=== PATIENT | male | born 1950 | race Caucasian/White ===

== ENCOUNTER 2023-05-17 19:11 | Inpatient (IN) | payer MEDICARE, OTHER ==
[~2023-05-17] VITALS: Ht 172.7 cm; Wt 69.9 kg
--- NOTE | 2023-05-17 19:45 | NUR ---
Patient resting bed, informed of plan of care at this time. No s/s of any distress noted, #20g established in right ac, blood collected and sent to lab. ER provider exam was done.
[2023-05-17 20:02] LABS: CARBON DIOXIDE 29 mmol/L (21-32); CHLORIDE 100 mmol/L (98-107); CREATININE 1.4 mg/dL (0.6-1.3); HEMATOCRIT 30.6 % (36.7-47.1); MEAN CORPUSCULAR HEMOGLOBIN 36.3 uug (23.8-33.4); MEAN CORPUSCULAR VOLUME 109.4 fL (73.0-96.2); PLATELET COUNT (AUTO) 192 K/uL (152-348); POTASSIUM 4.2 mmol/L (3.5-5.1); UREA NITROGEN, BLOOD 17 mg/dL (7-18)
[2023-05-17 20:16] LABS: ALANINE AMINOTRANSFERASE 6 U/L (16-63); ALKALINE PHOSPHATASE 153 U/L (50-136); ASPARTATE AMINOTRANSFERASE 8 U/L (15-37); BILIRUBIN,DIRECT 0.2 mg/dL (0.0-0.2); BILIRUBIN,TOTAL 0.7 mg/dL (0.2-1.0); TOTAL PROTEIN, SERUM 6.7 g/dL (6.4-8.2)
[2023-05-17 20:17] LABS: ACETAMINOPHEN < 10.0 ug/mL (10-30)
[2023-05-17 20:32] LABS: MAGNESIUM 1.7 mg/dL (1.8-2.4)
--- NOTE | 2023-05-17 21:19 | NUR ---
Patient continues to rest, awaiting all results and MD re-eval.
--- NOTE | 2023-05-17 21:57 | NUR ---
Urine collected and sent to lab.
[2023-05-17] MEDS ORDERED: MAGNESIUM SULFATE/D5W 200 ML ONE (21:59)
[2023-05-17] MEDS: MAGNESIUM SULFATE/D5W 100 ML IV SCH ×3 (22:05→23:07)
[2023-05-17 22:06] LABS: *BLOOD, URINE NEGATIVE (NEGATIVE); *CLARITY,URINE CLEAR (CLEAR); *COLOR,URINE YELLOW (YELLOW); *KETONES,URINE TRACE (NEGATIVE); *UROBILINOGEN,URINE 0.2 E.U./dl (NORMAL); LEUKOCYTE ESTERASE ,URINE NEGATIVE (NEGATIVE); NITRITE, URINE NEGATIVE (NEGATIVE); UGLUCOSE NEGATIVE (NEGATIVE)
[2023-05-17 22:19] LABS: *BILIRUBIN,URIN 1+ (NEGATIVE)
[2023-05-17 22:30] LABS: *AMPHETAMINE, URINE NEGATIVE (NEGATIVE); *CANNABINOID, URINE POSITIVE (NEGATIVE); *COCCAINE, URINE NEGATIVE (NEGATIVE); *PHENCYCLIDINE SCREEN,URINE NEGATIVE (NEGATIVE)
[2023-05-17 23:04] LABS: BACTERIA,URINE FEW /HPF (NONE SEEN); RBC,URINE 0-3 /HPF (0-3); SQUAMOUS EPITHELIAL CELL,UR FEW /HPF (NONE SEEN); WBC,URINE NONE SEEN /HPF (0-3)
--- NOTE | 2023-05-17 23:05 | NUR ---
Crisis evaluation in process at this time.
--- NOTE | 2023-05-17 23:09 | NUR ---
2 grams of mag was given.
[2023-05-17] MEDS ORDERED: OXYCODONE/APAP 5-325 MG TABLET ONE (23:30)
[2023-05-17] MEDS ORDERED: OXYCODONE/APAP 5-325 MG TABLET PO ONE (23:30)
[2023-05-17] MEDS ORDERED: LORAZEPAM 0.5 MG TABLET PO ONE (23:30)
[2023-05-17] MEDS ORDERED: LORAZEPAM 0.5 MG TABLET ONE (23:30)
[2023-05-18] MEDS ORDERED: ALPR1TAB7 PO (00:02)
--- NOTE | 2023-05-18 00:02 | NUR ---
Pt states unable to remember names and dosages of medications, needs further follow up.
--- NOTE | 2023-05-18 00:13 | NUR ---
Patient informed that he will stay in hospital for now.
[2023-05-18] MEDS ORDERED: OLANZAPINE 5 MG TABLET PO ONE (00:15)
--- NOTE | 2023-05-18 00:16 | NUR ---
Patient up to bathroom with assist.
[2023-05-18] MEDS ORDERED: OLANZAPINE 5 MG TABLET ONE (00:20)
--- NOTE | 2023-05-18 00:55 | NUR ---
Patient is resting at this time, no change in primary assessment. Side rails up, will continue to monitor.
--- NOTE | 2023-05-18 02:01 | NUR ---
Patient remains awake, talking to himself. No change in primary assessment, will continue to monitor.
--- NOTE | 2023-05-18 03:47 | NUR ---
Patient remains awke, continues to talk to himself, no s/s of any distress. No voiced c/o pain or discomfort, side rails remain up, will continue to monitor.
--- NOTE | 2023-05-18 04:51 | NUR ---
Requested and given a urinal.
--- NOTE | 2023-05-18 06:32 | NUR ---
Patient has been awake all night talking to himself and trying to get out of bed, will continue with frequent monitoring. Side rails remain up at this time. Call placed to daughter Shi [phone], updated on plan of care. Roommate Bill #[phone].
--- NOTE | 2023-05-18 08:12 | NUR ---
PT IS IN BED , RESING COMFORTABLY. CONTINUE TO MONITOR THE PT.
[2023-05-18] MEDS ORDERED: OLANZAPINE 10 MG VIAL IM ONE ×2 (12:26→12:30)
[2023-05-18] MEDS ORDERED: MAGNESIUM HYDROXIDE 30 ML LIQUID UDC PO PRN (13:30)
[2023-05-18] MEDS ORDERED: MAG HYDROX/AL HYDROX/SIMETH 30 ML LIQUID UDC PO PRN (13:30)
--- NOTE | 2023-05-18 13:43 | NUR ---
REPORT WAS GIVEN TO RN M[facility]. PT WAS TRANSFERED TO [facility] ROOM #[id number].
[2023-05-18 14:40] VITALS: BP 157/73; TEMP 98.8; O2SAT 98
--- NOTE | 2023-05-18 14:51 | NUR ---
GPS Nursing Admission Note: Received 72 y/o male patient on a 5150 hold for GD. Patient was brought in on wheel chair via ER nurse. Per hold, patient was brought by ambulance due to hallucination and left arm pain . There, patient was placed on a 5150 hold starting 05/17/2023 @ 2349 hours.Upon face to face assessment, pt was confused, disoriented, malodorous, and lethargic. Per [facility] report, patient was given zyprexa IM for restlessness and agitation . During admission, pt was non-ambulatory and was full assist with care. Gave patient his Advisement, Patient's Handbook, and placed at his bedside table. Pt's belongings were accounted for; contraband (cellphone) secured in nurse station locker. Patient will be under the care of Dr. Bennett.
[2023-05-18 20:00] VITALS: BP 133/68; TEMP 97.4; O2SAT 97
[2023-05-18] MEDS: THIAMINE HCL 100 MG TABLET PO SCH (20:15)
[2023-05-18] MEDS: LORAZEPAM 1 MG TABLET PO PRN (20:48)
--- NOTE | 2023-05-18 21:00 | NUR ---
Received patient in the hallway sitting in a aron chair near the nursing station for safety. He is noted A/O x 1. he is hyperverbal,and restless. he stated, "just let me go. i need to go. i don't need to be here". He has poor insight and judgment as to the reason for his admission to [facility]. he is labile un unpredictable. Ativan 1mg PO PRN was given for anxiety. His V/S are stable. He is reassured for his safety. safety and fall precautions are in place. he was given PO fluids, but he refused snacks, will continue to monitor.
[2023-05-18] MEDS: ZOLPIDEM 5 MG TABLET PO PRN (21:54)
[2023-05-19 08:36] VITALS: BP 152/72; TEMP 98.5; O2SAT 99
[2023-05-19] MEDS: THIAMINE HCL 100 MG TABLET PO SCH (08:37)
[2023-05-19] MEDS: MULTIVIT, IRON, MIN NO. 8, FA TABLET PO SCH (08:37)
[2023-05-19 08:43] LABS: ALANINE AMINOTRANSFERASE 11 U/L (16-63); ALKALINE PHOSPHATASE 140 U/L (50-136); ASPARTATE AMINOTRANSFERASE 25 U/L (15-37); BILIRUBIN,TOTAL 0.6 mg/dL (0.2-1.0); CARBON DIOXIDE 28 mmol/L (21-32); CHLORIDE 105 mmol/L (98-107); CREATININE 1.4 mg/dL (0.6-1.3); POTASSIUM 3.9 mmol/L (3.5-5.1); TOTAL PROTEIN, SERUM 6.7 g/dL (6.4-8.2); UREA NITROGEN, BLOOD 22 mg/dL (7-18)
[2023-05-19] MEDS: DIVALPROEX SPRINKLE 125 MG CAP.SPRINK PO SCH ×2 (12:22→16:49)
[2023-05-19] MEDS: OLANZAPINE ZYDIS 5 MG TAB.RAPDIS PO SCH ×2 (12:23→16:49)
[2023-05-19] MEDS: ACETAMINOPHEN 325 MG TABLET PO PRN ×2 (12:23→20:12)
--- NOTE | 2023-05-19 14:35 | NUR ---
Received patient is confused and disoriented total care to all ADLS, assisted patient up to Kathleen-chair ,patient is restless and agitated prn Ativan given as ordered.c/o left arm pain managed well by Tylenol . un able to attend in group activity .patient with poor impulse control and poor insight ,will continue close monitoring.
[2023-05-19 16:28] VITALS: BP 149/59; TEMP 98; O2SAT 97
[2023-05-19 20:18] VITALS: BP 137/59; TEMP 98; O2SAT 98
--- NOTE | 2023-05-19 21:00 | NUR ---
Received patient in the hallway sitting in a aron chair near the nursing station for safety. He is noted A/O x 1 to 2. he is calm and cooperative. he is able to given basic information about himself and the reason for his admission to mhu. he stated added, "I felt at home an my arm hurts". he is able to comply with his medication regiment. Tylenol PO PRN was given for arm pain. His V/S are stable. He is reassured for his safety. safety and fall precautions are in place. he was given PO fluids, but he refused snacks, all his needs are met. will continue to monitor.
[2023-05-20] MEDS: ACETAMINOPHEN 325 MG TABLET PO PRN ×2 (07:51→23:35)
[2023-05-20] MEDS: LORAZEPAM 1 MG TABLET PO PRN ×2 (07:51→23:35)
[2023-05-20 08:01] VITALS: BP 146/80; TEMP 98.4; O2SAT 98
[2023-05-20] MEDS: OLANZAPINE ZYDIS 5 MG TAB.RAPDIS PO SCH ×2 (08:25→17:00)
[2023-05-20] MEDS: DIVALPROEX SPRINKLE 125 MG CAP.SPRINK PO SCH ×3 (08:25→17:00)
[2023-05-20] MEDS: THIAMINE HCL 100 MG TABLET PO SCH (08:25)
[2023-05-20] MEDS: MULTIVIT, IRON, MIN NO. 8, FA TABLET PO SCH (08:25)
[2023-05-20 11:52] LABS: *BLOOD, URINE NEGATIVE (NEGATIVE); *CLARITY,URINE CLEAR (CLEAR); *COLOR,URINE YELLOW (YELLOW); *KETONES,URINE 1+ (NEGATIVE); *UROBILINOGEN,URINE 0.2 E.U./dl (NORMAL); LEUKOCYTE ESTERASE ,URINE NEGATIVE (NEGATIVE); NITRITE, URINE NEGATIVE (NEGATIVE); PH,URINE 5.5 (5.0-8.0); UGLUCOSE NEGATIVE (NEGATIVE)
[2023-05-20 12:01] LABS: *BILIRUBIN,URIN 1+ (NEGATIVE)
[2023-05-20 12:09] LABS: RBC,URINE 0-3 /HPF (0-3)
[2023-05-20 12:10] LABS: BACTERIA,URINE FEW /HPF (NONE SEEN); SQUAMOUS EPITHELIAL CELL,UR FEW /HPF (NONE SEEN); WBC,URINE 0-3 /HPF (0-3)
--- NOTE | 2023-05-20 12:50 | NUR ---
NIKOLE Initial Discharge Note: Pt currently resides at home with his cousin located at [address] [place] [address] [address] [facility] [address] . Per pt's daughter, Jo, pt's current home is sold and he has until July to move out. Jo stated pt needs to discharge to an assisted living. Pt does not have a DPOA or conservator per Jo. Jo will be contacting this SW back to provide pt's brother, Piter's contact information. NIKOLE will working with pt, family and MD to ensure a safe and proper discharge plan.
--- NOTE | 2023-05-20 12:53 | NUR ---
Firearms Report: Mud Analysis Supervisor completed and submitted a [employer] firearms report for 5150 grave disability certifications. A copy of report has been placed in patient chart.
[2023-05-20 16:13] VITALS: BP 105/66; TEMP 98; O2SAT 97
--- NOTE | 2023-05-20 17:29 | NUR ---
called Dr. Jauregui @[phone] for Ortho consult due to Fx left shoulder.
--- NOTE | 2023-05-20 18:35 | NUR ---
GPS: Nursing Notes: Thought Disorder: Patient is awake and responding to his name, impaired judgment, resistant with nursing care, A/Ox2, compliant with his medications, needs assistance with ADL's, needs prompting to participate in therapeutic groups, unable to formulate a viable plan for self care, continue to monitor for safety, continue with treatment plan.
[2023-05-20] MEDS: ZOLPIDEM 5 MG TABLET PO PRN (20:51)
[2023-05-20 21:01] VITALS: BP 169/79; TEMP 98; O2SAT 99
--- NOTE | 2023-05-20 23:35 | NUR ---
Ambien given at 2050 hours was ineffective for insomnia. Patient requested medication for anxiousness and pain in his (L) shoulder. Gave Ativan 1mg po prn, and Tylenol 650mg po prn. Safe environment provided. Will continue to monitor.
[2023-05-21] MEDS: LORAZEPAM 1 MG TABLET PO PRN ×3 (03:19→23:19)
--- NOTE | 2023-05-21 03:35 | NUR ---
Gave Ativan po prn d/t restlessness. Safe environment ongoing. Will continue to monitor.
--- NOTE | 2023-05-21 04:57 | NUR ---
Patient constantly restless and asking for pain medication. States the pain meds aren't strong enough. States he can't sleep d/t the pain. Gave Tylenol 650mg po prn. Will continue to monitor Addendum: 05/21/23 at 0500 by JIMENA CHAMPION LVN Patient also experiencing visual and auditory hallucinations throughout the night.
[2023-05-21] MEDS: ACETAMINOPHEN 325 MG TABLET PO PRN ×2 (05:02→12:14)
--- NOTE | 2023-05-21 05:26 | NUR ---
Pt remained restless throughout the night, and didn't respond well to his PRN medications. No sleep, just restless experiencing VH and AH and asking for unnecessary things. Also kept asking for his "regular" medications which this nurse repeatedly explained that he doesn't have any psych meds at night, only throughout the daytime, and nothing for pain other than Tylenol ES. Will endorse to day-shift RN.
--- NOTE | 2023-05-21 06:28 | NUR ---
While doing rounds/head checks, found patient sitting upright next to his bed. Patient stated he was trying to go to the restroom. This nurse, and all nurses on shift had repeatedly explained to him that he should never attempt to get up out of his bed and attempt to ambulate by himself d/t his unsteady gait and balance. Pt always verbalized understanding to this. He is forgetful, has poor judgement making, and can't follow directions. He overestimates his abilities, and can't follow directions without complete guidance from staff. His bed alarm was on throughout the night, and was on during this occurrence. The bed alarm failed to trigger/go-off to notify this nurse nor any of the other 2 nurses on shift. Currently, this patient doesn't have any psychiatric medications at night, and are only scheduled during the day-shift. This patient remained confused, disoriented, and failed to fall asleep, remaining restless, delusional, and experiencing AH and VH throughout the night. Patient developed a small abrasion on his (R) lateral knee. Picture taken, placed in patient's folder, wound cleansed, covered with adhesive dressing. Patient denies any pain and has complete movement without any s/s of discomfort nor pain. This nurse will notify doctors Donald, and April, and change of shift RN.
[2023-05-21 07:52] VITALS: BP 150/65; TEMP 97.9; O2SAT 99
[2023-05-21] MEDS: OLANZAPINE ZYDIS 5 MG TAB.RAPDIS PO SCH (08:35)
[2023-05-21] MEDS: THIAMINE HCL 100 MG TABLET PO SCH (08:35)
[2023-05-21] MEDS: DIVALPROEX SPRINKLE 125 MG CAP.SPRINK PO SCH ×2 (08:35→12:14)
[2023-05-21] MEDS: MULTIVIT, IRON, MIN NO. 8, FA TABLET PO SCH (08:35)
--- NOTE | 2023-05-21 12:34 | NUR ---
GPS: Nursing Notes: Thought Disorder: Patient is awake and responding to his name, impaired judgment, episodes of talking incoherently, redirected and reoriented during shift, believes that he is not a patient here. stated "I need to go to work... My car's bolanos is in my room... I need to get it..", poor insight, gets easily anxious when redirected, unable to formulate a viable plan for self care, resistant with nursing care, throwing his shoulder sling on the floor, episodes of disrobing, disorganized, continue with treatment plan.
[2023-05-21] MEDS ORDERED: DIVALPROEX SPRINKLE 125 MG CAP.SPRINK PO SCH ×2 (13:00→21:00)
--- NOTE | 2023-05-21 13:48 | NUR ---
GPS: Nursing Notes: Scheduled Surgery: Dr. Jauregui ordered a procedure consent for surgery for ORIF, which is done by staff and placed in the chart. Spoke with Dianne from OR whom scheduled the surgery for May at 13:30 hours. Patient to be NPO on Saturday, May 22, 2033 at midnight. Labs. to be order for 05/23/2023 at 05:00: CBC, CMP, EKG STAT prior to surgery. Patient's daughter - Shi informed of surgery and she agreed with the surgery. Dr. Bennett informed by Katherine via text and she stated that Dr. Bennett will discharge and discontinue the 5250 prior the surgery. Also, the charge nurse was informed of surgery.
[2023-05-21 16:11] VITALS: BP 153/72; TEMP 98.2; O2SAT 99
--- NOTE | 2023-05-21 16:11 | NUR ---
Clinical Social Work Note Daughter, Cornell ) called and is worried about her dad's confusion. She alleges he feel and fractured his shoulder prior to admission at home. She recognizes that the family may not be able to care for him at home and that he may a need higher level of care upon discharge. This commercial loan underwriter assured him discharge planning will take place once patient has recovered from his surgery and case mgr will discuss the plan of care with her. She is also concerned about her father's diagnosis and level of confusion and asked Dr Bennett to call her to discuss her father's diagnosis and prognosis. Dr Bennett agreed to call her.
[2023-05-21 20:15] VITALS: BP 178/83; TEMP 98.1; O2SAT 98
[2023-05-21] MEDS ORDERED: OLANZAPINE ZYDIS 5 MG TAB.RAPDIS PO SCH ×2 (21:00)
[2023-05-21] MEDS: METOPROLOL TARTRATE 25 MG TABLET PO SCH (22:15)
--- NOTE | 2023-05-21 23:20 | NUR ---
Gave Ativan 1mg po prn q 4 hrs for continued restlessness. Safe environment provided. Will continue to monitor.
[2023-05-22 07:54] LABS: HEMATOCRIT 28.7 % (36.7-47.1); MEAN CORPUSCULAR HEMOGLOBIN 36.5 uug (23.8-33.4); MEAN CORPUSCULAR VOLUME 109.2 fL (73.0-96.2); PLATELET COUNT (AUTO) 180 K/uL (152-348)
[2023-05-22 07:57] VITALS: BP 129/73; TEMP 98.4; O2SAT 98
[2023-05-22 08:40] LABS: IRON, SERUM 18 ug/dL (50-175)
[2023-05-22 08:55] LABS: ALANINE AMINOTRANSFERASE 17 U/L (16-63); ALKALINE PHOSPHATASE 122 U/L (50-136); ASPARTATE AMINOTRANSFERASE 19 U/L (15-37); BILIRUBIN,TOTAL 0.5 mg/dL (0.2-1.0); CARBON DIOXIDE 29 mmol/L (21-32); CHLORIDE 107 mmol/L (98-107); CREATINE KINASE, TOTAL 129 U/L (39-308); CREATININE 1.3 mg/dL (0.6-1.3); PHOSPHOROUS 4.6 mg/dL (2.5-4.9); POTASSIUM 3.9 mmol/L (3.5-5.1); TOTAL PROTEIN, SERUM 6.4 g/dL (6.4-8.2); UREA NITROGEN, BLOOD 28 mg/dL (7-18)
[2023-05-22] MEDS: METOPROLOL TARTRATE 25 MG TABLET PO SCH (09:00)
[2023-05-22] MEDS: MULTIVIT, IRON, MIN NO. 8, FA TABLET PO SCH (09:00)
[2023-05-22] MEDS: THIAMINE HCL 100 MG TABLET PO SCH (09:00)
[2023-05-22] MEDS ORDERED: OLANZAPINE ZYDIS 5 MG TAB.RAPDIS PO SCH (09:00)
[2023-05-22 09:21] LABS: FERRITIN 870 ng/mL (26-388)
[2023-05-22] MEDS: DIVALPROEX SPRINKLE 125 MG CAP.SPRINK PO SCH (13:00)
[2023-05-22 15:23] VITALS: BP 136/60; TEMP 98.4; O2SAT 98
--- NOTE | 2023-05-22 16:02 | NUR ---
Received orders to discharge and transfer this patient to Medical floor due to Orif Left Proximal Humerus with possible humeral arthroplasty surgery by Dr. Jauregui. All Psych and medical medications were continued by Dr. Shaw and PAPERHANGER CONTRACTOR Cresencio Suh. Patient consent form was included in the discharge package. All valuables and belongings were returned to patient. Patient denies SI/HI AH/VH, SOB, pain or any discomfort. Emotional support provided. Fall and safety precautions implemented.
[2023-05-22] MEDS ORDERED: ZOLP5TAB2 PO (18:32)
[2023-05-22] MEDS ORDERED: METO25TA6 PO (18:32)
[2023-05-22] MEDS ORDERED: THIA100T74 PO (18:32)
[2023-05-22] MEDS ORDERED: OLAN5TAB70 PO (18:32)
[2023-05-22] MEDS ORDERED: MAGN400O6 PO (18:32)
[2023-05-22] MEDS ORDERED: MAG-79 PO (18:32)
[2023-05-22] MEDS ORDERED: MULT-647 PO (18:32)
[2023-05-22] MEDS ORDERED: DIVA125C2 PO ×2 (18:32)
[2023-05-22] MEDS ORDERED: LORA0.5T48 PO (18:32)
[2023-05-22] MEDS ORDERED: ACET325C7 PO (18:32)
[2023-05-23 12:06] LABS: A/G RATIO 0.9 (0.7-1.7); ALBUMIN 2.7 g/dL (2.9-4.4); ALPHA-1-GLOBULIN 0.4 g/dL (0.0-0.4); ALPHA-2-GLOBULIN 0.9 g/dL (0.4-1.0); BETA GLOBULIN 0.9 g/dL (0.7-1.3); GAMMA GLOBULIN 0.8 g/dL (0.4-1.8); M-SPIKE Not Observed g/dL (Not Observed)
== END 2023-05-22 16:00 | disposition short-term general hospital (02) | DRG 885 ==
LOC: ER 19:48 → GPS 05-18 13:20
PROVIDERS: ADMIT Psychiatry & Neurology Psychiatry; ATTEND Nurse Practitioner Acute Care
DX: F29 Unspecified psychosis not due to a substance or known physiological condition (principal); N17.0 Acute kidney failure with tubular necrosis; F03.93 Unspecified dementia, unspecified severity, with mood disturbance; S42.292A Other displaced fracture of upper end of left humerus, initial encounter for closed fracture; E11.9 Type 2 diabetes mellitus without complications; E83.42 Hypomagnesemia; D53.9 Nutritional anemia, unspecified; D72.829 Elevated white blood cell count, unspecified; F17.210 Nicotine dependence, cigarettes, uncomplicated; F32.A Depression, unspecified; F41.9 Anxiety disorder, unspecified; Z73.6 Limitation of activities due to disability; F39 Unspecified mood [affective] disorder; F10.10 Alcohol abuse, uncomplicated; F12.10 Cannabis abuse, uncomplicated; X58.XXXA Exposure to other specified factors, initial encounter; Y93.9 Activity, unspecified; Y92.009 Unspecified place in unspecified non-institutional (private) residence as the place of occurrence of the external cause
CPT/HCPCS: 36415; 70450; 71045; 73030; 73560; 80164; 83550; 83735; 83970; 84100; 84155; 84165; 85025; 93005; A4663; A6209; G0480; J2358; J3475